=== PATIENT | male | born 1970 | race Two or more races ===

== ENCOUNTER 2018-06-26 09:21 | Inpatient (IN) | payer MEDICARE, OTHER ==
[~2018-06-26] VITALS: Ht 165.1 cm; Wt 59.0 kg
[2018-06-26] VITALS (9 sets, daily range): BP systolic 133–233; BP diastolic 75–122
[2018-06-26] MEDS ORDERED: AMLODIPINE BESYL5 MG ORAL (09:31)
[2018-06-26] MEDS ORDERED: CARBAMAZEPINE200 M4 ORAL (09:31)
[2018-06-26] MEDS ORDERED: ATORVASTATIN CA40 MG ORAL (09:31)
[2018-06-26] MEDS ORDERED: CITALOPRAM HBR20 M1 ORAL (09:31)
[2018-06-26] MEDS ORDERED: TRAMADOL HCL100 M2 ORAL (09:31)
[2018-06-26] MEDS ORDERED: TYLENOL EXTRA500 MG ORAL (09:31)
[2018-06-26] MEDS ORDERED: ASPIRIN81 MG ORAL (09:31)
[2018-06-26] MEDS ORDERED: HUMALOG100 UNIT/4 SUBQ (09:31)
[2018-06-26] MEDS ORDERED: OMEPRAZOLE40 M1 ORAL (09:31)
[2018-06-26] MEDS ORDERED: DOCUSATE SODIU100 M2 ORAL (09:31)
[2018-06-26] MEDS ORDERED: CLONIDINE HCL0.1 M1 PO (09:31)
--- NOTE | 2018-06-26 09:41 | NUR ---
ED Nurse Note: Patient brought in to ER by ambulance by [facility] due to headache and high blood pressure. bp 233/122mmHg and ERMD notified. pt Macedonian speaker, namita x3-4, skin clean and intact and pt has dialysis catheter on Rt upper chest. per pt, he gets dialysis every ,, and last one was yesterday which was Sunday. pt c/o headache 01/02.
[2018-06-26] MEDS ORDERED: cloNIDine 0.2mg Tab ORAL ONE (09:45)
[2018-06-26 10:05] LABS: HEMATOCRIT 38.1 % (42.0-52.0); HEMOGLOBIN 13.1 G/DL (14.2-18.0); MEAN CORPUSCULAR VOLUME 89 FL (80-99); PLATELET COUNT 318 K/UL (150-450); RED BLOOD COUNT 4.28 M/UL (4.70-6.10); RED CELL DISTRIBUTION WIDTH 13.8 % (11.6-14.8); WHITE BLOOD COUNT 11.6 K/UL (4.8-10.8)
[2018-06-26 10:16] LABS: ANION GAP 14 mmol/L (5-15); BLOOD UREA NITROGEN 36 mg/dL (7-18); CALCIUM 9.2 MG/DL (8.5-10.1); CARBON DIOXIDE 28 MMOL/L (21-32); CHLORIDE 95 MMOL/L (98-107); CREATININE 6.6 MG/DL (0.55-1.30); POTASSIUM 4.3 MMOL/L (3.5-5.1); SODIUM 137 MMOL/L (136-145)
--- NOTE | 2018-06-26 10:16 | Diagnostic Imaging Report ---
Indication: Cough Technique: One view of the chest Comparison: none Findings: Lungs and pleural spaces are clear. Heart size is normal. There is a right jugular tunneled dialysis catheter in position Impression: No acute process
[2018-06-26 10:31] LABS: ALANINE AMINOTRANSFERASE 19 U/L (12-78); ALBUMIN 4.2 G/DL (3.4-5.0); ALKALINE PHOSPHATASE 117 U/L (46-116); ASPARTATE AMINO TRANSFERASE 16 U/L (15-37); BILIRUBIN,TOTAL 0.4 MG/DL (0.2-1.0); CKMB 3.5 NG/ML (0.0-3.6); CREATINE KINASE 92 U/L (26-308)
--- NOTE | 2018-06-26 11:09 | Diagnostic Imaging Report ---
Indications: Headache Technique: Spiral acquisitions obtained through the brain. Angled axial and coronal 5 x 5 mm slices were reconstructed. Total dose length product 1365.53 mGycm. CTDI vol(s) 70.38 mGy. Dose reduction achieved using automated exposure control Comparison: None. Findings: There is a large area of encephalomalacia involving the right temporal, parietal, posterior frontal, and occipital lobes. There is also contiguous cystic encephalomalacia involving the right basal ganglia. Old lacunar infarct is seen involving the right caudate head. Contiguous with possibly separate focus of encephalomalacia is also seen in the high posterior right parietal lobe. There is resultant ex vacuo dilatation of the body and frontal horn of the right lateral ventricle. Questionable old lacunar infarct versus artifact in the right side of the midbrain. No acute intracranial hemorrhage nor edema. No mass effect nor midline shift. Otherwise normal marino-white differentiation. The calvarium is intact. Visualized orbits and sinuses are unremarkable. 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 The CT scanner at [facility] is accredited by the [employer] and the scans are performed using protocols designed to limit radiation exposure to as low as reasonably achievable to attain images of sufficient resolution adequate for diagnostic evaluation.
--- NOTE | 2018-06-26 11:20 | NUR ---
ED Nurse Note: Dr. Lama informed of patient's blood pressure, received verbal orders for hydralazine 10mg
--- NOTE | 2018-06-26 12:30 | NUR ---
ED Nurse Note: Systolic is going down to under 200. ERMD notified. pt is stable to be transferred.
--- NOTE | 2018-06-26 12:40 | NUR ---
ED Nurse Note: Report given to VIKAS Sow
--- NOTE | 2018-06-26 13:00 | NUR ---
ED Nurse Note: Pt left department with 1 RN and 1 voip technician in stable condition.
[2018-06-26] MEDS ORDERED: Miralax 17gm pkt ORAL PRN (13:15)
[2018-06-26] MEDS ORDERED: dilTIAZem HCl 25mg/5ml Inj IV PRN (13:15)
[2018-06-26] MEDS ORDERED: Nitroglycerin Subl 0.4mg tab SL PRN (13:15)
[2018-06-26] MEDS ORDERED: Enalaprilat 2.5mg/2ml Inj IV PRN (13:15)
[2018-06-26] MEDS ORDERED: Labetalol 5mg/ml 20ml vial IV PRN (13:15)
[2018-06-26] MEDS ORDERED: Albuterol/Ipratropium 3ml neb HHN PRN (13:15)
--- NOTE | 2018-06-26 13:15 | NUR ---
NURSE NOTES: Received report from VIKAS Thomas. Pt is alert and oriented X3. Pt is complaining of severe head and left arm pain. Heart monitor was applied to patient. Belongings list is in chart. Bed is in lowest position, side rails up X2, and call light is within reach. Will continue to monitor.
--- NOTE | 2018-06-26 13:17 | History and Physical ---
History of Present Illness General Date patient seen: Jun 27, 2018 Reason for Hospitalization: Hypertension Present Illness HPI 48 year old male with hx of DM, HTN, renal disease, dialysis, Hyperlipidemia presented to emergency department complaining of acute onset of headache and elevated blood pressure. Patient is a poor historian. He appeared to be confused. Patient currently stays at a assisted living. Symptoms are noted to be severe. His BP was 220/120 and he is admitted to telemetry for hypertensive emergency. Allergies: Coded Allergies: No Known Allergies (Unverified , 06/26/18) Medication History Scheduled Amlodipine Besylate* (Amlodipine Besylate*), 5 MG ORAL DAILY, (Reported) Aspirin* (Aspirin*), 81 MG ORAL DAILY, (Reported) Atorvastatin Calcium* (Atorvastatin Calcium*), 40 MG ORAL BEDTIME, (Reported) Carbamazepine (Carbamazepine), 200 MG ORAL ONCE, (Reported) Citalopram Hydrobromide* (Citalopram Hbr*), 20 MG ORAL DAILY, (Reported) Docusate Sodium (Docusate Sodium), 100 MG ORAL DAILY, (Reported) Omeprazole (Omeprazole), 40 MG ORAL DAILY, (Reported) Tramadol Hcl (Tramadol Hcl), 50 MG ORAL DAILY, (Reported) Scheduled PRN Acetaminophen* (Tylenol Extra Strength*), 500 MG ORAL Q6H PRN for Mild Pain/ Temp > 100.5, (Reported) Miscellaneous Medications Clonidine HCl (Clonidine HCl ER), 0.1 MG PO, (Reported) Insulin Lispro (Humalog), 0 SUBQ, (Reported) Patient History Healthcare decision maker N Resuscitation status Advanced Directive on File Past Medical/Surgical History Past Medical/Surgical History: (1) Diabetes mellitus (2) Psychosis (3) ESRF (end stage renal failure) Review of Systems All Other Systems: negative except mentioned in HPI Physical Exam General Appearance: cachetic Lines, tubes and drains: peripheral HEENT: normocephalic, atraumatic Neck: non-tender, normal alignment Respiratory/Chest: chest wall non-tender, lungs clear Breasts: no masses Cardiovascular/Chest: normal rate, no JVD Abdomen: normal bowel sounds, non tender Extremities: normal range of motion, non-pitting Skin Exam: cyanotic Neurologic: election watcher II-XII grossly normal Last 24 Hour Vital Signs Date Time Temp Pulse Resp B/P (MAP) Pulse Ox O2 Delivery O2 Flow Rate FiO2 06/26/18 12:26 178/91 06/26/18 12:22 199/100 06/26/18 12:00 199/100 06/26/18 11:45 213/114 06/26/18 11:21 226/120 06/26/18 11:20 86 14 206/100 100 Room Air 06/26/18 10:30 97.2 95 17 222/122 99 Room Air 06/26/18 09:48 233/122 06/26/18 09:41 98.2 95 14 233/122 100 Room Air 06/26/18 09:41 95 14 Room Air 06/26/18 09:16 98.1 90 19 224/120 98 Room Air Laboratory Tests Test 06/26/18 10:00 White Blood Count 11.6 K/UL (4.8-10.8) H Red Blood Count 4.28 M/UL (4.70-6.10) L Hemoglobin 13.1 G/DL (14.2-18.0) L Hematocrit 38.1 % (42.0-52.0) L Mean Corpuscular Volume 89 FL (80-99) Mean Corpuscular Hemoglobin 30.6 PG (27.0-31.0) Mean Corpuscular Hemoglobin Concent 34.4 G/DL (32.0-36.0) Red Cell Distribution Width 13.8 % (11.6-14.8) Platelet Count 318 K/UL (150-450) Mean Platelet Volume 7.8 FL (6.5-10.1) Neutrophils (%) (Auto) % (45.0-75.0) Lymphocytes (%) (Auto) % (20.0-45.0) Monocytes (%) (Auto) % (1.0-10.0) Eosinophils (%) (Auto) % (0.0-3.0) Basophils (%) (Auto) % (0.0-2.0) Differential Total Cells Counted 100 Neutrophils % (Manual) 92 % (45-75) H Lymphocytes % (Manual) 6 % (20-45) L Monocytes % (Manual) 2 % (1-10) Eosinophils % (Manual) 0 % (0-3) Basophils % (Manual) 0 % (0-2) Band Neutrophils 0 % (0-8) Platelet Estimate Adequate Platelet Morphology Normal Red Blood Cell Morphology Normal Sodium Level 137 MMOL/L (136-145) Potassium Level 4.3 MMOL/L (3.5-5.1) Chloride Level 95 MMOL/L (98-107) L Carbon Dioxide Level 28 MMOL/L (21-32) Anion Gap 14 mmol/L (5-15) Blood Urea Nitrogen 36 mg/dL (7-18) H Creatinine 6.6 MG/DL (0.55-1.30) H Estimat Glomerular Filtration Rate 9.0 mL/min (>60) Glucose Level 193 MG/DL (74-106) H Calcium Level 9.2 MG/DL (8.5-10.1) Total Bilirubin 0.4 MG/DL (0.2-1.0) Aspartate Amino Transf (AST/SGOT) 16 U/L (15-37) Alanine Aminotransferase (ALT/SGPT) 19 U/L (12-78) Alkaline Phosphatase 117 U/L (46-116) H Total Creatine Kinase 92 U/L (26-308) Creatine Kinase MB 3.5 NG/ML (0.0-3.6) Creatine Kinase MB Relative Index 3.8 Troponin I 0.013 ng/mL (0.000-0.056) Pro-B-Type Natriuretic Peptide > 93069 pg/mL (0-125) H Total Protein 8.3 G/DL (6.4-8.2) H Albumin 4.2 G/DL (3.4-5.0) Globulin 4.1 g/dL Albumin/Globulin Ratio 1.0 (1.0-2.7) Lipase 157 U/L (73-393) Microbiology Date/Time Source Procedure Growth Status 06/26/18 12:30 Rectum Received Height (Feet): 5 Height (Inches): 5.00 Weight (Pounds): 155 Assessment/Plan Problem List: (1) Hypertensive emergency ICD Codes: I16.1 - Hypertensive emergency SNOMED: 545896931191649 (2) Hypertensive encephalopathy ICD Codes: I67.4 - Hypertensive encephalopathy SNOMED: 32810983 (3) ESRF (end stage renal failure) ICD Codes: N18.6 - End stage renal disease SNOMED: 04579020 (4) Psychosis ICD Codes: F29 - Unspecified psychosis not due to a substance or known physiological condition SNOMED: 67474606 (5) Diabetes mellitus ICD Codes: E11.9 - Type 2 diabetes mellitus without complications SNOMED: 32081045 Assessment/Plan telemetry monitoring dialysis by nephrology monitor and treat BP sliding scale diabetic diet symptomatic treatment check electrolytes Rodolfo Campbell MD Jun 26, 2018 13:17
--- NOTE | 2018-06-26 14:20 | Emergency Room Report ---
History of Present Illness General Chief Complaint: Hypertension Source: Medical Record, EMS Present Illness HPI Patient has history renal failure is currently on dialysis. Patient also presented emergency department today complaining of acute onset of headache and elevated blood pressure. Patient is a poor historian. He appeared be confused was brought here further evaluation. Patient currently stays at a assisted living. Symptoms are noted to be severe.No other modifying factors. No other associated signs and symptoms. No other complaints were noted. Allergies: Coded Allergies: No Known Allergies (Unverified , 06/26/18) Patient History Past Medical History: DM, HTN, renal disease, dialysis, other - Hyperlipidemia Past Surgical History: unable to obtain Social History Narrative stays at assisted-living Reviewed Nursing Documentation: PMH: Agreed; PSxH: Agreed Nursing Documentation-PMH Past Medical History: No History, Except For Hx Hypertension: Yes - HYPERLIPIDEMIA Hx Diabetes: Yes - TYPE 2 Hx Cancer: No Hx Neurological Problems: Yes Hx Cerebrovascular Accident: Yes - date unk Hx Weakness: Yes Review of Systems All Other Systems: negative except mentioned in HPI Physical Exam Vital Signs Date Time Temp Pulse Resp B/P (MAP) Pulse Ox O2 Delivery O2 Flow Rate FiO2 06/26/18 09:16 98.1 90 19 224/120 98 Room Air Sp02 EP Interpretation: reviewed, normal General Appearance: normal inspection, lethargic, Chronically Ill Head: atraumatic Eyes: bilateral eye normal inspection ENT: normal ENT inspection, hearing grossly normal, normal voice Neck: normal inspection, full range of motion, supple, no bony tend Respiratory: normal inspection, lungs clear, normal breath sounds, no respiratory distress, no retraction, no wheezing Cardiovascular #1: regular rate, rhythm, no edema Gastrointestinal: normal inspection, normal bowel sounds, non tender, soft, no guarding, no hernia Genitourinary: no CVA tenderness Musculoskeletal: normal inspection, back normal, normal range of motion Neurologic: responsive, speech normal, grossly normal Psychiatric: depressed affect Skin: normal inspection, normal color, no rash Procedures Critical Care Time Critical Care Time Patient had a critical medical condition which untreated could potentially result in life or limb threatening injury. Total critical care time excluding procedures was approximately 45 minutes. Medical Decision Making Diagnostic Impression: Primary Impression: Hypertensive emergency Additional Impression: Altered mental status ER Course Patient presents emergency department today with altered mental status elevated blood pressure. Differential considerations include hypertensive emergency, hypertensive urgency, electrolyte abnormality just name a few.Given the severity of the patient's presentation I felt this is a highly complex patient. This patient required extensive workup. Patient laboratory workup was not impressive. Patient's head CT however show prior stroke. Patient required clonidine multiple doses of hydralazine to control the blood pressure. After obtaining good control blood pressure patient still appear slightly confused. I felt the patient require admission for further treatment and management. Case was discussed with Dr. Campbell for admission. Labs Test 06/26/18 10:00 White Blood Count 11.6 K/UL (4.8-10.8) Red Blood Count 4.28 M/UL (4.70-6.10) Hemoglobin 13.1 G/DL (14.2-18.0) Hematocrit 38.1 % (42.0-52.0) Mean Corpuscular Volume 89 FL (80-99) Mean Corpuscular Hemoglobin 30.6 PG (27.0-31.0) Mean Corpuscular Hemoglobin Concent 34.4 G/DL (32.0-36.0) Red Cell Distribution Width 13.8 % (11.6-14.8) Platelet Count 318 K/UL (150-450) Mean Platelet Volume 7.8 FL (6.5-10.1) Neutrophils (%) (Auto) % (45.0-75.0) Lymphocytes (%) (Auto) % (20.0-45.0) Monocytes (%) (Auto) % (1.0-10.0) Eosinophils (%) (Auto) % (0.0-3.0) Basophils (%) (Auto) % (0.0-2.0) Differential Total Cells Counted 100 Neutrophils % (Manual) 92 % (45-75) Lymphocytes % (Manual) 6 % (20-45) Monocytes % (Manual) 2 % (1-10) Eosinophils % (Manual) 0 % (0-3) Basophils % (Manual) 0 % (0-2) Band Neutrophils 0 % (0-8) Platelet Estimate Adequate Platelet Morphology Normal Red Blood Cell Morphology Normal Sodium Level 137 MMOL/L (136-145) Potassium Level 4.3 MMOL/L (3.5-5.1) Chloride Level 95 MMOL/L (98-107) Carbon Dioxide Level 28 MMOL/L (21-32) Anion Gap 14 mmol/L (5-15) Blood Urea Nitrogen 36 mg/dL (7-18) Creatinine 6.6 MG/DL (0.55-1.30) Estimat Glomerular Filtration Rate 9.0 mL/min (>60) Glucose Level 193 MG/DL (74-106) Calcium Level 9.2 MG/DL (8.5-10.1) Total Bilirubin 0.4 MG/DL (0.2-1.0) Aspartate Amino Transf (AST/SGOT) 16 U/L (15-37) Alanine Aminotransferase (ALT/SGPT) 19 U/L (12-78) Alkaline Phosphatase 117 U/L (46-116) Total Creatine Kinase 92 U/L (26-308) Creatine Kinase MB 3.5 NG/ML (0.0-3.6) Creatine Kinase MB Relative Index 3.8 Troponin I 0.013 ng/mL (0.000-0.056) Pro-B-Type Natriuretic Peptide > 37757 pg/mL (0-125) Total Protein 8.3 G/DL (6.4-8.2) Albumin 4.2 G/DL (3.4-5.0) Globulin 4.1 g/dL Albumin/Globulin Ratio 1.0 (1.0-2.7) Lipase 157 U/L (73-393) EKG Diagnostic Results Rate: normal Rhythm: NSR ST Segments: no acute changes Rhythm Strip Diag. Results EP Interpretation: yes Rate: 90s Rhythm: NSR, no PVC's, no ectopy Chest X-Ray Diagnostic Results Chest X-Ray Diagnostic Results : Chest X-Ray Ordered: Yes Indication: Chest Pain EP Interpretation: No Interpretation: no consolidation, no effusion, no pneumothorax Impression: No acute disease Last Vital Signs Date Time Temp Pulse Resp B/P (MAP) Pulse Ox O2 Delivery O2 Flow Rate FiO2 06/26/18 13:42 Room Air 06/26/18 13:15 98.5 117 24 178/111 (133) 98 Status: improved Disposition: ADMITTED INPATIENT Condition: Serious Referrals: NON PHYSICIAN (PCP) Rich Lama MD Jun 26, 2018 14:20
[2018-06-26] MEDS: NovoLOG Insulin Flexpen SUBQ SCH ×2 (16:30→20:38)
--- NOTE | 2018-06-26 17:08 | NUR ---
NURSE NOTES: Patient denied his insulin. He states that 170 is normal for him and he only uses insulin when his blood sugar is above 200. Explained the sliding scale to the patient. He verbalized understanding but still refuses to get his insulin coverage.
--- NOTE | 2018-06-26 19:37 | NUR ---
HAND-OFF: Report given to Dottie Waters RN. [facility] endorsed
--- NOTE | 2018-06-26 19:54 | NUR ---
NURSE NOTES: patient received. patient in no acute distress at this time. Patient complains of no pain at this time. patient awake alert and oriented x3-4. patient IV intact and asymptomatic. patient bed in lowest position and locked. bed alarm on. call light within reach. will continue to monitor.
--- NOTE | 2018-06-26 20:27 | Cardiology Progress Note ---
Assessment/Plan Assessment/Plan [id number] Objective Last 24 Hour Vital Signs Date Time Temp Pulse Resp B/P (MAP) Pulse Ox O2 Delivery O2 Flow Rate FiO2 06/26/18 16:00 90 06/26/18 16:00 99.2 93 20 143/91 (108) 97 06/26/18 13:42 Room Air 06/26/18 13:15 98.5 117 24 178/111 (133) 98 06/26/18 13:00 98.3 98 17 177/89 98 Room Air 06/26/18 12:26 178/91 06/26/18 12:22 199/100 06/26/18 12:00 199/100 06/26/18 11:45 213/114 06/26/18 11:21 226/120 06/26/18 11:20 86 14 206/100 100 Room Air 06/26/18 10:30 97.2 95 17 222/122 99 Room Air 06/26/18 09:48 233/122 06/26/18 09:41 98.2 95 14 233/122 100 Room Air 06/26/18 09:41 95 14 Room Air 06/26/18 09:16 98.1 90 19 224/120 98 Room Air Laboratory Tests Test 06/26/18 10:00 06/26/18 17:15 White Blood Count 11.6 K/UL (4.8-10.8) H Red Blood Count 4.28 M/UL (4.70-6.10) L Hemoglobin 13.1 G/DL (14.2-18.0) L Hematocrit 38.1 % (42.0-52.0) L Mean Corpuscular Volume 89 FL (80-99) Mean Corpuscular Hemoglobin 30.6 PG (27.0-31.0) Mean Corpuscular Hemoglobin Concent 34.4 G/DL (32.0-36.0) Red Cell Distribution Width 13.8 % (11.6-14.8) Platelet Count 318 K/UL (150-450) Mean Platelet Volume 7.8 FL (6.5-10.1) Neutrophils (%) (Auto) % (45.0-75.0) Lymphocytes (%) (Auto) % (20.0-45.0) Monocytes (%) (Auto) % (1.0-10.0) Eosinophils (%) (Auto) % (0.0-3.0) Basophils (%) (Auto) % (0.0-2.0) Differential Total Cells Counted 100 Neutrophils % (Manual) 92 % (45-75) H Lymphocytes % (Manual) 6 % (20-45) L Monocytes % (Manual) 2 % (1-10) Eosinophils % (Manual) 0 % (0-3) Basophils % (Manual) 0 % (0-2) Band Neutrophils 0 % (0-8) Platelet Estimate Adequate Platelet Morphology Normal Red Blood Cell Morphology Normal Sodium Level 137 MMOL/L (136-145) Potassium Level 4.3 MMOL/L (3.5-5.1) Chloride Level 95 MMOL/L (98-107) L Carbon Dioxide Level 28 MMOL/L (21-32) Anion Gap 14 mmol/L (5-15) Blood Urea Nitrogen 36 mg/dL (7-18) H Creatinine 6.6 MG/DL (0.55-1.30) H Estimat Glomerular Filtration Rate 9.0 mL/min (>60) Glucose Level 193 MG/DL (74-106) H Calcium Level 9.2 MG/DL (8.5-10.1) Total Bilirubin 0.4 MG/DL (0.2-1.0) Aspartate Amino Transf (AST/SGOT) 16 U/L (15-37) Alanine Aminotransferase (ALT/SGPT) 19 U/L (12-78) Alkaline Phosphatase 117 U/L (46-116) H Total Creatine Kinase 92 U/L (26-308) Creatine Kinase MB 3.5 NG/ML (0.0-3.6) Creatine Kinase MB Relative Index 3.8 Troponin I 0.013 ng/mL (0.000-0.056) 0.017 ng/mL (0.000-0.056) Pro-B-Type Natriuretic Peptide > 12314 pg/mL (0-125) H Total Protein 8.3 G/DL (6.4-8.2) H Albumin 4.2 G/DL (3.4-5.0) Globulin 4.1 g/dL Albumin/Globulin Ratio 1.0 (1.0-2.7) Lipase 157 U/L (73-393) Microbiology Date/Time Source Procedure Growth Status 06/26/18 12:30 Rectum Received Thad Carnes MD Jun 26, 2018 20:27
[2018-06-26] MEDS: Atorvastatin 20mg tab ORAL SCH (20:36)
[2018-06-26] MEDS: Heparin 5000 units/ml inj SUBQ SCH (20:38)
[2018-06-27] VITALS (8 sets, daily range): BP systolic 124–210; BP diastolic 70–116
--- NOTE | 2018-06-27 05:15 | Consultation ---
DATE OF CONSULTATION: 06/26/2018 CARDIOLOGY CONSULTATION CONSULTING PHYSICIAN: Thad Carnes M.D. REFERRING PHYSICIAN: Rodolfo Campbell M.D. REASON FOR EVALUATION: Management of hypertension. HISTORY OF PRESENT ILLNESS: This is a middle-aged gentleman, who is a very poor historian. Information is obtained from review of the patient's chart. Seemed that he came into the hospital because of headaches and left arm pain, but really he is not able to answer questions appropriately. He does not seem to have any chest pains. He states he is not walking, he is bedbound most of the time, and he does not have any palpitations or shortness of breath or chest pains. PAST MEDICAL HISTORY: According to the chart is positive for history of generalized weakness, gait disorder, anemia of chronic disease, chronic renal insufficiency on hemodialysis, coronary artery disease without angina and cerebral infarction, history of diabetes mellitus, hemiplegia, hemiparesis, hypothyroidism, hyperparathyroidism, hyperlipidemia, depression, systemic hypertension, gastroesophageal reflux disease, recurrent nausea and vomiting, and history of convulsions. ALLERGIES: He is not known to be allergic to any medications. MEDICATIONS: He is on aspirin 81 mg, Lipitor 40 mg, Tegretol 200 mg once a day, citalopram 20 mg a day, clonidine p.r.n., Colace, Humalog insulin, magnesium hydroxide solution, Protonix, Zofran, Patricia-Crystal, sevelamer, tramadol, and Tylenol as listed. REVIEW OF SYSTEMS: GASTROINTESTINAL: Positive for apparently nausea and vomiting. He denies any diarrhea. GENITOURINARY: He is on dialysis. PULMONARY: Denies any coughing or wheezing. CONSTITUTIONAL: No fevers, chills, or night sweats. PHYSICAL EXAMINATION: GENERAL: Shows a young gentleman, in no respiratory distress. VITAL SIGNS: Blood pressure is anywhere between 143/91, most recently to 199/100. NECK: Supple. No jugular venous distention. LUNGS: Appear to be clear to auscultation and percussion. CARDIAC: S1 is normal. S2 is normal. Regular rate and rhythm. No heaves, thrills, or gallops noted. ABDOMEN: Soft and nontender. Positive bowel sounds. EXTREMITIES: There is no clubbing, cyanosis, or edema. NEUROLOGICAL: He is awake, alert, and responsive. LABORATORY AND DIAGNOSTIC DATA: Laboratory values on telemetry shows sinus rhythm and sinus tachycardia. EKG, normal sinus rhythm, normal QRS axis, no ST or T-wave abnormalities noted. Labs, blood tests show white count 11.6, hemoglobin 13.1, and platelet count of 318,000. Sodium is 137, potassium 4.3, chloride 95, bicarb 28, BUN 36, creatinine 6.6, glucose of 193, calcium is 9.2, alkaline phosphatase is 117, and proBNP of greater than 35,000. Total protein is 8.3 with albumin of 4.2 and lipase of 157. X-rays were performed including a CT scan of the head that shows large area of encephalomalacia in the right temporal, parietal, frontal, occipital lobe consistent with old infarction and the chest x-ray has no acute processes. ASSESSMENT AND PLAN: 1. Hypertension. 2. Cephalgia. 3. History of CVA. 4. Diabetes mellitus. 5. History of hypertension. 6. History of hyperlipidemia. 7. History of end-stage renal disease, on hemodialysis. 8. Hyperparathyroidism. 9. Hypothyroidism. 10. Depression. 11. History of convulsions or seizures. This patient was seen in cardiac consultation. The patient does not appear to be on any significant antihypertensive medications. We are starting the patient on some calcium-channel blockers for blood pressure control as needed and may require addition of SALLY inhibitors for blood pressure control as well. He will be followed and two sets of cardiac enzymes are negative. An EKG and echo would be ordered for tomorrow morning. Thad Carnes M.D. DR: ESTRELLA JOB#: [id number] CC:
[2018-06-27] MEDS: NovoLOG Insulin Flexpen SUBQ SCH ×4 (06:30→21:00)
--- NOTE | 2018-06-27 07:03 | NUR ---
HAND-OFF: Report given to mayur meadows
--- NOTE | 2018-06-27 07:05 | NUR ---
CASE MANAGEMENT:REVIEW 48 YR OLD BIBA FROM [facility] CC: ELEVATED BLOOD PRESSURE AND HEADACHE PMH: DIALYSIS SI: HTN EMERGENCY. AMS 98.0 90 19 224/120 98% ON RA WBC+11.6 BUN+36 CR+6.6 TROPONIN(-) IS: IV HYDRALAZINE X2 CLONIDINE PO CT HEAD CXR : TO TELEMETRY PLAN: NEURO CHECKS Q4HRS INTERQUAL CRITERIA MET
--- NOTE | 2018-06-27 07:42 | NUR ---
NURSE NOTES: Received report from Jt Shine RN. pt is confused and states that he wants to leave because he has an appt. He states he wants a sleeping pills because he is bored. Bed is in lowest position, side rails up x2, and call light is within reach. Will continue to monitor.
[2018-06-27 07:44] LABS: BASOPHILS % (AUTO) 1.6 % (0.0-2.0); EOSINOPHILS % (AUTO) 1.1 % (0.0-3.0); HEMATOCRIT 36.5 % (42.0-52.0); HEMOGLOBIN 11.9 G/DL (14.2-18.0); LYMPHOCYTES % (AUTO) 22.3 % (20.0-45.0); MEAN CORPUSCULAR VOLUME 92 FL (80-99); MONOCYTES % (AUTO) 10.4 % (1.0-10.0); NEUTROPHILS % (AUTO) 64.7 % (45.0-75.0); PLATELET COUNT 320 K/UL (150-450); RED BLOOD COUNT 3.95 M/UL (4.70-6.10); RED CELL DISTRIBUTION WIDTH 14.6 % (11.6-14.8); WHITE BLOOD COUNT 9.8 K/UL (4.8-10.8)
[2018-06-27 08:23] LABS: CHOLESTEROL 121 MG/DL (< 200); HDL CHOLESTEROL 51 MG/DL (40-60); TRIGLYCERIDES 136 MG/DL (30-150)
--- NOTE | 2018-06-27 08:30 | NUR ---
NURSE NOTES: Patient is refusing to wear monitor. Explained the importance of the monitor. He states " I don't like it, send me back. I want to go back". Monitor returned to MT
[2018-06-27] MEDS: Aspirin Baby 81mg ORAL SCH (08:31)
[2018-06-27] MEDS: Heparin 5000 units/ml inj SUBQ SCH ×2 (08:32→23:56)
--- NOTE | 2018-06-27 09:59 | Consultation ---
Consult Note Consult Note asked to eval for dialysis management poor historian anxious due for HD today Patient has history renal failure is currently on dialysis. Patient also presented emergency department today complaining of acute onset of headache and elevated blood pressure. Patient is a poor historian. He appeared be confused was brought here further evaluation. Patient currently stays at a assisted living. Symptoms are noted to be severe.No other modifying factors. No other associated signs and symptoms. No other complaints were noted. No Known Allergies (Unverified , 06/26/18) Past Medical History: DM, HTN, renal disease, dialysis, other - Hyperlipidemia Past Surgical History: unable to obtain Social History Narrative stays at assisted-living Reviewed Nursing Documentation: PMH: Agreed; PSxH: Agreed Past Medical History: No History, Except For Hx Hypertension: Yes - HYPERLIPIDEMIA Hx Diabetes: Yes - TYPE 2 Hx Neurological Problems: Yes Hx Cerebrovascular Accident: Yes - date unk Hx Weakness: Yes interviewed examined data reviewed Assessment/Plan 1. Hypertension. OOC 2. Cephalgia. 3. History of CVA. 4. Diabetes mellitus. 5. History of hypertension. 6. History of hyperlipidemia. 7. History of end-stage renal disease, on hemodialysis. on HD past few months vis right chest permacath 8. Hyperparathyroidism. 9. Hypothyroidism. 10. Depression. 11. History of convulsions or seizures. Adjust BP meds HD today Monitor labs per orders Bhaskar Krishna MD Jun 27, 2018 09:59
[2018-06-27] MEDS ORDERED: LORazepam 1mg tab ORAL SCH (10:00)
[2018-06-27] MEDS ORDERED: Metoprolol Tartrate 12.5mg TAB ORAL SCH (10:00)
--- NOTE | 2018-06-27 10:05 | NUR ---
NURSE NOTES: Informed the patient about EKG. He states he does not need it and does not want it. Will continue to monitor.
[2018-06-27] MEDS: Citalopram Hydrobromide 10mg Tab ORAL SCH (10:15)
[2018-06-27] MEDS: carBAMazepine 200mg tab ORAL SCH (10:15)
[2018-06-27 10:23] LABS: CREATINE KINASE 81 U/L (26-308); GAMMA GLUTAMYL TRANSPEPTIDASE 41 U/L (5-85); PHOSPHORUS 5.4 MG/DL (2.5-4.9)
[2018-06-27] MEDS ORDERED: Enalaprilat 2.5mg/2ml Inj IV PRN (12:00)
--- NOTE | 2018-06-27 12:10 | Pulmonology Progress Note ---
Assessment/Plan Problems: (1) Hypertensive emergency (2) Hypertensive encephalopathy (3) ESRF (end stage renal failure) (4) Psychosis (5) Diabetes mellitus Assessment/Plan being dialyzed now BP sightly better add Seroquel telemetry monitoring dialysis by nephrology monitor and treat BP sliding scale diabetic diet symptomatic treatment check electrolytes Subjective ROS Limited/Unobtainable: No Constitutional: Reports: no symptoms HEENT: Repors: no symptoms Allergies: Coded Allergies: No Known Allergies (Unverified , 06/26/18) Objective Last 24 Hour Vital Signs Date Time Temp Pulse Resp B/P (MAP) Pulse Ox O2 Delivery O2 Flow Rate FiO2 06/27/18 10:46 228/117 06/27/18 09:00 Room Air 06/27/18 08:32 205/116 06/27/18 08:31 88 205/116 06/27/18 08:00 98.3 88 20 205/116 (145) 96 06/27/18 04:00 98.3 69 18 124/70 (88) 97 06/27/18 04:00 77 06/27/18 00:00 97.3 84 18 131/80 (97) 96 06/27/18 00:00 80 06/26/18 21:00 Room Air 06/26/18 20:00 80 06/26/18 20:00 99.4 82 18 133/75 (94) 97 06/26/18 16:00 90 06/26/18 16:00 99.2 93 20 143/91 (108) 97 06/26/18 13:42 Room Air 06/26/18 13:15 98.5 117 24 178/111 (133) 98 06/26/18 13:00 98.3 98 17 177/89 98 Room Air 06/26/18 12:26 178/91 06/26/18 12:22 199/100 Intake and Output 06/26/18 06/27/18 19:00 07:00 Intake Total 0 ml 170 ml Balance 0 ml 170 ml Intake Oral 0 ml 50 ml Other 120 ml General Appearance: WD/WN HEENT: normocephalic, atraumatic Respiratory/Chest: chest wall non-tender, lungs clear Cardiovascular: normal peripheral pulses, regular rhythm Abdomen: normal bowel sounds, no organomegaly Genitourinary: normal external genitalia 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 Microbiology Date/Time Source Procedure Growth Status 06/26/18 12:30 Rectum Received Laboratory Tests 06/26/18 17:15: Troponin I 0.017 06/27/18 07:03: Troponin I 0.152H, White Blood Count 9.8, Red Blood Count 3.95L, Hemoglobin 11.9L, Hematocrit 36.5L, Mean Corpuscular Volume 92, Mean Corpuscular Hemoglobin 30.1, Mean Corpuscular Hemoglobin Concent 32.6, Red Cell Distribution Width 14.6, Platelet Count 320, Mean Platelet Volume 7.5, Neutrophils (%) (Auto) 64.7, Lymphocytes (%) (Auto) 22.3, Monocytes (%) (Auto) 10.4H, Eosinophils (%) (Auto) 1.1, Basophils (%) (Auto) 1.6, Prothrombin Time 10.7, Prothromb Time International Ratio 1.0, Activated Partial Thromboplast Time 31, Hemoglobin A1c 5.7, Uric Acid 6.0, Phosphorus Level 5.4H, Magnesium Level 2.6H, Gamma Glutamyl Transpeptidase 41, Total Creatine Kinase 81, C- Reactive Protein, Quantitative 2.2H, Triglycerides Level 136, Cholesterol Level 121, LDL Cholesterol 55, HDL Cholesterol 51, Cholesterol/HDL Ratio 2.4L, Thyroid Stimulating Hormone (TSH) 1.560 Current Medications Medications (Trade) Dose Ordered Sig/Celia Route PRN Reason Start Time Stop Time Status Last Admin Dose Admin Acetaminophen (Tylenol) 650 mg Q4H PRN ORAL FEVER 06/26/18 13:15 07/26/18 13:14 Albuterol/ Ipratropium (Albuterol/ Ipratropium) 3 ml Q4H PRN HHN Shortness of Breath 06/26/18 13:15 07/01/18 13:14 Amlodipine Besylate (Norvasc) 5 mg DAILY ORAL 06/28/18 09:00 07/27/18 08:59 Aspirin (ASA) 81 mg DAILY ORAL 06/27/18 09:00 07/27/18 08:59 06/27/18 08:31 Atorvastatin Calcium (Lipitor) 40 mg BEDTIME ORAL 06/26/18 21:00 07/26/18 20:59 06/26/18 20:36 Carbamazepine (TEGretol) 200 mg DAILY ORAL 06/27/18 10:15 07/27/18 10:14 Citalopram Hydrobromide (celeXA) 10 mg DAILY ORAL 06/27/18 10:15 07/27/18 10:14 Clonidine HCl (Catapres Tab) 0.1 mg EVERY 8 HOURS ORAL 06/27/18 14:00 07/27/18 13:59 Dextrose (Dextrose 50%) 25 ml Q30M PRN IV Hypoglycemia 06/26/18 15:15 07/26/18 15:14 Dextrose (Dextrose 50%) 50 ml Q30M PRN IV Hypoglycemia 06/26/18 15:15 07/26/18 15:14 Docusate Sodium (Colace) 100 mg TWICE A DAY ORAL 06/27/18 18:00 07/27/18 17:59 Heparin Sodium (Porcine) (Heparin 5000 units/ml) 5,000 units EVERY 12 HOURS SUBQ 06/26/18 21:00 07/26/18 20:59 06/26/18 20:38 Insulin Aspart (NovoLOG) BEFORE MEALS AND HS SUBQ 06/26/18 16:30 07/26/18 16:29 06/26/18 20:38 Lorazepam (Ativan) 1 mg Q6H PRN ORAL For Anxiety 06/27/18 10:15 07/04/18 10:14 Metoprolol Tartrate (Lopressor) 12.5 mg Q12HR ORAL 06/27/18 21:00 07/27/18 20:59 Nitroglycerin (Ntg) 0.4 mg Q5M PRN SL Prn Chest Pain 06/26/18 13:15 07/26/18 13:14 Ondansetron HCl (Zofran) 4 mg Q6H PRN IVP Nausea & Vomiting 06/26/18 13:15 07/26/18 13:14 06/27/18 00:23 Pantoprazole (Protonix) 40 mg BID ORAL 06/27/18 18:00 07/27/18 08:59 Polyethylene Glycol (Miralax) 17 gm DAILYPRN PRN ORAL Constipation 06/26/18 13:15 07/26/18 13:14 Temazepam (Restoril) 15 mg HSPRN PRN ORAL Insomnia 06/26/18 13:15 07/03/18 13:14 Rodolfo Campbell MD Jun 27, 2018 12:10
--- NOTE | 2018-06-27 15:45 | Cardiology Report ---
APPROVED REPORT EXAM: Two-dimensional and M-mode echocardiogram with Doppler and color Doppler. INDICATION Left ventricular function M-Mode DIMENSIONS IVSd0.8 (0.7-1.1cm)Left Atrium (MM)2.9 (1.6-4.0cm) LVDd4.5 (3.5-5.6cm)Aortic Root2.9 (2.0-3.7cm) PWd0.9 (0.7-1.1cm)Aortic Cusp Exc.1.8 (1.5-2.0cm) LVDs2.9 (2.5-4.0cm) PWs2.5 cm Normal left ventricular chamber size, systolic function and wall motion. Left ventricular ejection fraction estimated to be 70 %. Mild left ventricular hypertrophy by 2D. Anterior Echo-free space, may be due to pericardial fat or effusion. All other cardiac chamber sizes are within normal limits. Focal aortic valve sclerosis with adequate cusp excursion. Thickened mitral valve leaflets with normal excursion. Mitral annulus and aortic root calcification. Pulmonic valve not well visualized. Normal tricuspid valve structure. IVC measured at 1.9 cm with slight physiologic collapse. A color flow and spectral Doppler study was performed and revealed: Trace aortic regurgitation.. Trace,mitral regurgitation. Can not determine left ventricular diastolic function by mitral diastolic velocities due to atrial fibrillation. Trace tricuspid regurgitation. Tricuspid systolic velocities suggests peak right ventricular systolic pressure of 15 mmHg Pulmonic regurgitation present.
[2018-06-27] MEDS: Docusate 100mg cap ORAL SCH (17:13)
[2018-06-27] MEDS ORDERED: Minoxidil 2.5mg tab ORAL PRN (19:18)
--- NOTE | 2018-06-27 19:28 | NUR ---
HAND-OFF: Report given to VIKAS Mckeon. Plan of care endorsed
--- NOTE | 2018-06-27 19:30 | NUR ---
NURSE NOTES: Received report from VIKAS Rosenberg. Patient in bed asleep showing no signs of acute distress. Respiration even and non labored on room air. No sob noted. IV line patent and intact. Bed in lowest position. Call light within reach. All needs attended and met. Will continue plan of care.
--- NOTE | 2018-06-27 19:54 | NUR ---
NURSE NOTES: Called and spoke to Dr. Carnes to inform new lab result of Troponin 0.152. No new order given.
--- NOTE | 2018-06-27 23:30 | NUR ---
NURSE NOTES: Patient refused to wear radiographer cardiac catheterization. Explained risk, benefits and purpose to patient. Patient still firmly refused.
[2018-06-27] MEDS: LORazepam 1mg tab ORAL PRN (23:42)
[2018-06-27] MEDS: Atorvastatin 20mg tab ORAL SCH (23:42)
[2018-06-27] MEDS: Metoprolol Tartrate 12.5mg TAB ORAL SCH (23:42)
[2018-06-28] VITALS: BP 190/108
[2018-06-28 04:00] VITALS: BP 178/100
[2018-06-28] MEDS: NovoLOG Insulin Flexpen SUBQ SCH ×2 (06:30→12:26)
[2018-06-28 06:39] LABS: BASOPHILS % (AUTO) 2.2 % (0.0-2.0); EOSINOPHILS % (AUTO) 4.9 % (0.0-3.0); HEMOGLOBIN 12.5 G/DL (14.2-18.0); LYMPHOCYTES % (AUTO) 35.2 % (20.0-45.0); MEAN CORPUSCULAR VOLUME 92 FL (80-99); MONOCYTES % (AUTO) 11.7 % (1.0-10.0); NEUTROPHILS % (AUTO) 46.1 % (45.0-75.0); PLATELET COUNT 322 K/UL (150-450); RED BLOOD COUNT 4.12 M/UL (4.70-6.10); RED CELL DISTRIBUTION WIDTH 14.7 % (11.6-14.8); WHITE BLOOD COUNT 7.7 K/UL (4.8-10.8)
[2018-06-28] MEDS: LORazepam 1mg tab ORAL PRN ×2 (06:45→14:27)
--- NOTE | 2018-06-28 07:04 | NUR ---
HAND-OFF: Report given to Sukh Draper RN.
--- NOTE | 2018-06-28 07:05 | NUR ---
NURSE NOTES: Received report from Addendum: 06/28/18 at 0709 by Bonny Joyner RN NURSE NOTES: Received report from Mike BEAN. Pt in bed awake. Alert/oriented and urdu speaking and able to make needs known. No signs of distress noted. C/o light headache. Bed in lowest position and locked. IV in LFA with 20G SL patent and intact. Rhythm with SR noted during filenet architect. Will continue to monitor plan of care.
[2018-06-28 07:15] LABS: ALANINE AMINOTRANSFERASE 18 U/L (12-78); ALBUMIN 3.9 G/DL (3.4-5.0); ALKALINE PHOSPHATASE 103 U/L (46-116); ANION GAP 11 mmol/L (5-15); ASPARTATE AMINO TRANSFERASE 15 U/L (15-37); BILIRUBIN,TOTAL 0.4 MG/DL (0.2-1.0); BLOOD UREA NITROGEN 38 mg/dL (7-18); CALCIUM 9.4 MG/DL (8.5-10.1); CARBON DIOXIDE 28 MMOL/L (21-32); CHLORIDE 97 MMOL/L (98-107); CREATININE 7.7 MG/DL (0.55-1.30); FERRITIN 1100 NG/ML (8-388); PHOSPHORUS 5.1 MG/DL (2.5-4.9); POTASSIUM 4.3 MMOL/L (3.5-5.1); SODIUM 136 MMOL/L (136-145)
[2018-06-28 07:32] LABS: % IRON SATURATION 67 % (15-50); IRON 137 ug/dL (50-175); TOTAL IRON BINDING CAPACITY 206 ug/dL (250-450)
--- NOTE | 2018-06-28 07:35 | NUR ---
NURSE NOTES: Pt refuses applying shelter monitor. Explained the importance of cardiac monitoring for pt with elevated troponin. But pt still refused.
--- NOTE | 2018-06-28 07:50 | NUR ---
NURSE NOTES: Received report from Radha @Lab regarding Troponin I level with 0.100. Noted trending down of the result. Will continue to plan of care.
--- NOTE | 2018-06-28 07:50 | NUR ---
Received report from Radha @Lab regarding Troponin I level with 0.100. Noted trending down of the result. Will continue to plan of care.
[2018-06-28 08:00] VITALS: BP 129/81
[2018-06-28] MEDS: Citalopram Hydrobromide 10mg Tab ORAL SCH (08:51)
[2018-06-28] MEDS: Metoprolol Tartrate 12.5mg TAB ORAL SCH (08:51)
[2018-06-28] MEDS: Docusate 100mg cap ORAL SCH (08:51)
[2018-06-28] MEDS: Aspirin Baby 81mg ORAL SCH (08:52)
[2018-06-28] MEDS: carBAMazepine 200mg tab ORAL SCH (08:52)
[2018-06-28] MEDS: Heparin 5000 units/ml inj SUBQ SCH (08:53)
--- NOTE | 2018-06-28 10:12 | Nephrology Progress Note ---
Assessment/Plan Problem List: (1) ESRF (end stage renal failure) Assessment: on HD (2) Hypertensive emergency (3) Psychosis (4) Diabetes mellitus Assessment 1. Hypertension. OOC on admission- improved 2. Cephalgia. Resolved 3. History of CVA. 4. Diabetes mellitus. 5. History of hypertension. Hypertensive kidney ds 6. History of hyperlipidemia. 7. History of end-stage renal disease, on hemodialysis. on HD past few months vis right chest permacath 8. Hyperparathyroidism. 9. Hypothyroidism. 10. Depression. 11. History of convulsions or seizures. Plan Adjust BP meds HD 06/27 next 06/29 Monitor labs per orders Subjective ROS Limited/Unobtainable: No Objective Objective Last 24 Hour Vital Signs Date Time Temp Pulse Resp B/P (MAP) Pulse Ox O2 Delivery O2 Flow Rate FiO2 06/28/18 09:00 Room Air 06/28/18 08:51 82 129/81 06/28/18 08:51 82 129/81 06/28/18 08:00 97.3 82 18 129/81 (97) 99 06/28/18 06:46 178/100 06/28/18 04:00 97.8 69 20 178/100 (126) 97 06/28/18 00:00 98.3 81 20 190/108 (135) 99 06/27/18 23:43 187/110 06/27/18 23:42 96 187/110 06/27/18 21:00 Room Air 06/27/18 20:00 98.0 97 20 187/110 (135) 96 06/27/18 18:35 94 164/100 (121) 06/27/18 17:35 99.2 06/27/18 17:13 170/109 06/27/18 16:00 99.2 89 18 170/109 (129) 96 06/27/18 13:18 167/99 (121) 06/27/18 12:00 97.9 89 18 210/103 (138) 95 06/27/18 10:46 228/117 Intake and Output 06/27/18 06/28/18 18:59 06:59 Intake Total 120 ml 100 ml Output Total 2000 ml Balance -1880 ml 100 ml Intake Oral 120 ml 100 ml Output Hemodialysis UF 2000 ml Laboratory Tests 06/28/18 05:45: White Blood Count 7.7, Red Blood Count 4.12L, Hemoglobin 12.5L, Hematocrit 38.0L , Mean Corpuscular Volume 92, Mean Corpuscular Hemoglobin 30.5, Mean Corpuscular Hemoglobin Concent 33.0, Red Cell Distribution Width 14.7, Platelet Count 322, Mean Platelet Volume 8.4, Neutrophils (%) (Auto) 46.1, Lymphocytes (% ) (Auto) 35.2, Monocytes (%) (Auto) 11.7H, Eosinophils (%) (Auto) 4.9H, Basophils (%) (Auto) 2.2H, Sodium Level 136, Potassium Level 4.3, Chloride Level 97L, Carbon Dioxide Level 28, Anion Gap 11, Blood Urea Nitrogen 38H, Creatinine 7.7H, Estimat Glomerular Filtration Rate 7.5, Glucose Level 79, Calcium Level 9.4, Phosphorus Level 5.1H, Iron Level 137, Total Iron Binding Capacity 206L, Percent Iron Saturation 67H, Unsaturated Iron Binding 69L, Ferritin 1100H, Total Bilirubin 0.4, Aspartate Amino Transf (AST/SGOT) 15, Alanine Aminotransferase (ALT/SGPT) 18, Alkaline Phosphatase 103, Troponin I 0.100H, Total Protein 7.8, Albumin 3.9, Globulin 3.9, Albumin/Globulin Ratio 1.0 , Vitamin B12 Level 939, Folate 9.6 Height (Feet): 5 Height (Inches): 5.00 Weight (Pounds): 130 General Appearance: no apparent distress Cardiovascular: normal rate Respiratory/Chest: decreased breath sounds Abdomen: soft Bhaskar Krishna MD Jun 28, 2018 10:12
--- NOTE | 2018-06-28 11:00 | NUR ---
NURSE NOTES: Called [facility] hemodialysis to confirm the schedule for hemodialysis tomorrow. Spoke to Elroy BEAN and confirmed. [facility] dialysis#[phone]
[2018-06-28 12:00] VITALS: BP 176/100
[2018-06-28] MEDS ORDERED: NORVASC10 MG ORAL (12:35)
[2018-06-28] MEDS ORDERED: MINOXIDIL5 GM MC (12:36)
--- NOTE | 2018-06-28 12:36 | Pulmonology Progress Note ---
Assessment/Plan Problems: (1) Hypertensive emergency (2) Hypertensive encephalopathy (3) ESRF (end stage renal failure) (4) Psychosis (5) Diabetes mellitus Assessment/Plan no new complains refusing electrodes BP sightly better add Seroquel telemetry monitoring dialysis by nephrology monitor and treat BP sliding scale diabetic diet symptomatic treatment check electrolytes Subjective ROS Limited/Unobtainable: No Constitutional: Reports: no symptoms HEENT: Repors: no symptoms Respiratory: Reports: no symptoms Allergies: Coded Allergies: No Known Allergies (Unverified , 06/26/18) Objective Last 24 Hour Vital Signs Date Time Temp Pulse Resp B/P (MAP) Pulse Ox O2 Delivery O2 Flow Rate FiO2 06/28/18 12:26 176/100 06/28/18 12:00 97.8 72 18 176/100 (125) 99 06/28/18 09:00 Room Air 06/28/18 08:51 82 129/81 06/28/18 08:51 82 129/81 06/28/18 08:00 97.3 82 18 129/81 (97) 99 06/28/18 06:46 178/100 06/28/18 04:00 97.8 69 20 178/100 (126) 97 06/28/18 00:00 98.3 81 20 190/108 (135) 99 06/27/18 23:43 187/110 06/27/18 23:42 96 187/110 06/27/18 21:00 Room Air 06/27/18 20:00 98.0 97 20 187/110 (135) 96 06/27/18 18:35 94 164/100 (121) 06/27/18 17:35 99.2 06/27/18 17:13 170/109 06/27/18 16:00 99.2 89 18 170/109 (129) 96 06/27/18 13:18 167/99 (121) Intake and Output 06/27/18 06/28/18 18:59 06:59 Intake Total 120 ml 100 ml Output Total 2000 ml Balance -1880 ml 100 ml Intake Oral 120 ml 100 ml Output Hemodialysis UF 2000 ml Objective Lines, tubes and drains: peripheral HEENT: normocephalic, atraumatic Neck: non-tender, normal alignment Respiratory/Chest: chest wall non-tender, lungs clear Breasts: no masses Cardiovascular/Chest: normal rate, no JVD Abdomen: normal bowel sounds, non tender Extremities: normal range of motion, non-pitting Skin Exam: cyanotic 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 Complete 06/26/18 12:30 Rectum VRE Culture - Final NO VANCOMYCIN RESISTANT ENTEROCOCCUS ... Complete 06/26/18 12:30 Rectum Received Laboratory Tests 06/28/18 05:45: White Blood Count 7.7, Red Blood Count 4.12L, Hemoglobin 12.5L, Hematocrit 38.0L , Mean Corpuscular Volume 92, Mean Corpuscular Hemoglobin 30.5, Mean Corpuscular Hemoglobin Concent 33.0, Red Cell Distribution Width 14.7, Platelet Count 322, Mean Platelet Volume 8.4, Neutrophils (%) (Auto) 46.1, Lymphocytes (% ) (Auto) 35.2, Monocytes (%) (Auto) 11.7H, Eosinophils (%) (Auto) 4.9H, Basophils (%) (Auto) 2.2H, Sodium Level 136, Potassium Level 4.3, Chloride Level 97L, Carbon Dioxide Level 28, Anion Gap 11, Blood Urea Nitrogen 38H, Creatinine 7.7H, Estimat Glomerular Filtration Rate 7.5, Glucose Level 79, Calcium Level 9.4, Phosphorus Level 5.1H, Iron Level 137, Total Iron Binding Capacity 206L, Percent Iron Saturation 67H, Unsaturated Iron Binding 69L, Ferritin 1100H, Total Bilirubin 0.4, Aspartate Amino Transf (AST/SGOT) 15, Alanine Aminotransferase (ALT/SGPT) 18, Alkaline Phosphatase 103, Troponin I 0.100H, Total Protein 7.8, Albumin 3.9, Globulin 3.9, Albumin/Globulin Ratio 1.0 , Vitamin B12 Level 939, Folate 9.6 Current Medications Medications (Trade) Dose Ordered Sig/Celia Route PRN Reason Start Time Stop Time Status Last Admin Dose Admin Acetaminophen (Tylenol) 650 mg Q4H PRN ORAL FEVER 06/26/18 13:15 07/26/18 13:14 06/27/18 16:48 Albuterol/ Ipratropium (Albuterol/ Ipratropium) 3 ml Q4H PRN HHN Shortness of Breath 06/26/18 13:15 07/01/18 13:14 Amlodipine Besylate (Norvasc) 10 mg DAILY ORAL 06/28/18 09:00 07/27/18 08:59 06/28/18 08:51 Aspirin (ASA) 81 mg DAILY ORAL 06/27/18 09:00 07/27/18 08:59 06/28/18 08:52 Atorvastatin Calcium (Lipitor) 40 mg BEDTIME ORAL 06/26/18 21:00 07/26/18 20:59 06/27/18 23:42 Carbamazepine (TEGretol) 200 mg DAILY ORAL 06/27/18 10:15 07/27/18 10:14 06/28/18 08:52 Citalopram Hydrobromide (celeXA) 10 mg DAILY ORAL 06/27/18 10:15 07/27/18 10:14 06/28/18 08:51 Clonidine HCl (Catapres Tab) 0.1 mg EVERY 8 HOURS ORAL 06/27/18 14:00 07/27/18 13:59 06/28/18 06:46 Dextrose (Dextrose 50%) 25 ml Q30M PRN IV Hypoglycemia 06/26/18 15:15 07/26/18 15:14 Dextrose (Dextrose 50%) 50 ml Q30M PRN IV Hypoglycemia 06/26/18 15:15 07/26/18 15:14 Docusate Sodium (Colace) 100 mg TWICE A DAY ORAL 06/27/18 18:00 07/27/18 17:59 06/28/18 08:51 Heparin Sodium (Porcine) (Heparin 5000 units/ml) 5,000 units EVERY 12 HOURS SUBQ 06/26/18 21:00 07/26/18 20:59 06/28/18 08:53 Insulin Aspart (NovoLOG) BEFORE MEALS AND HS SUBQ 06/26/18 16:30 07/26/18 16:29 06/28/18 12:26 Lorazepam (Ativan) 1 mg Q6H PRN ORAL For Anxiety 06/27/18 10:15 07/04/18 10:14 06/28/18 06:45 Metoprolol Tartrate (Lopressor) 12.5 mg Q12HR ORAL 06/27/18 21:00 07/27/18 20:59 06/28/18 08:51 Minoxidil (Loniten) 2.5 mg Q4H PRN ORAL bp 160 and above 06/27/18 19:18 07/27/18 19:17 06/28/18 12:26 Nitroglycerin (Ntg) 0.4 mg Q5M PRN SL Prn Chest Pain 06/26/18 13:15 07/26/18 13:14 Ondansetron HCl (Zofran) 4 mg Q6H PRN IVP Nausea & Vomiting 06/26/18 13:15 07/26/18 13:14 06/27/18 00:23 Pantoprazole (Protonix) 40 mg BID ORAL 06/27/18 18:00 07/27/18 08:59 06/28/18 08:52 Polyethylene Glycol (Miralax) 17 gm DAILYPRN PRN ORAL Constipation 06/26/18 13:15 07/26/18 13:14 Quetiapine Fumarate (SEROquel) 25 mg Q12HR ORAL 06/27/18 12:00 07/27/18 11:59 06/28/18 08:52 Temazepam (Restoril) 15 mg HSPRN PRN ORAL Insomnia 06/26/18 13:15 07/03/18 13:14 Rodolfo Campbell MD Jun 28, 2018 12:36
--- NOTE | 2018-06-28 13:30 | NUR ---
NURSE NOTES: Verbal report given Love VIKAS @[facility].
--- NOTE | 2018-06-28 13:43 | NUR ---
DISCHARGE PLANNED PATIENT WILL RETURN TO [facility] ROOM 18 SKILLED T: [phone] FOR NURSE TO NURSE REPORT [facility] HAS BEEN ARRANGED FOR 1500 POSTMASTER
[2018-06-28 14:25] VITALS: BP 180/96
--- NOTE | 2018-06-28 15:20 | NUR ---
Discharge: Patient is being discharged from medical care via ambulance. Awake, alert and oriented x3. Vital signs are stable. No c/o pain. Gave the report to ambulance personnel. After care instructions, patient signed patient consent and belonging list in the medical record upon discharge. All medical devices such as IV, patient monitor and ID band were removed. Pt transferred to [facility] via [facility] with ambulance personnels.
--- NOTE | 2018-06-28 21:04 | Discharge Summary ---
Discharge Summary Discharge Summary _ DATE OF ADMISSION: 06/26/2018 DATE OF DISCHARGE: 06/28/2018 DISCHARGED BY: Dr. Campbell REASON FOR ADMISSION: 48 years old male with past medical history of diabetes mellitus, hypertension, end-stage renal disease, on hemodialysis, hyperlipidemia, hypothyroidism, history of CVA, hyperparathyroidism, depression, anxiety, presented with acute onset of headache and elevated blood pressure. Patient by himself was a poor historian and unable to provide much of information. Upon evaluation blood pressure was 224/120. Laboratory workup revealed mild leukocytosis WBC 11.6, hemoglobin 13.1, hematocrit 38.1. Stable electrolytes. BUN 36, creatinine 6.6, consistent with known history of end-stage renal disease. Troponin -0.013. EKG revealed normal sinus rhythm no acute ischemic changes. CT of the head revealed large area of encephalomalacia in the right temporal, parietal, frontal, occipital lobes, consistent with old middle cerebral artery distribution infarct. Other old infarcts, including right parietal lobe and right basal ganglia, questionably in the right midbrain. No evidence of acute intracranial bleeding or mass-effect. Patient was admitted for further management CONSULTANTS: contract negotiator Dr. Carnes agriculture specialist Dr. Krishna [facility] HOSPITAL COURSE: Patient admitted to telemetry floor. Cardiology and nephrology closely followed. Hemodialysis was arranged and provided as per agriculture specialist recommendations with close monitoring of volumes and renal parameters. Electrolytes corrected as needed. Echocardiogram revealed preserved ejection fraction of 70% with no evidence of wall motion abnormality. Mild left ventricular hypertrophy. Right ventricular systolic pressure of 15. Apparently patient was not on any antihypertensive medication. Patient started on calcium channel aminah and beta-aminah. Minoxidil was on board as needed for further blood pressure control. Patient may require further addition of SALLY inhibitor as outpatient to keep blood pressure under control. Repeated troponin was negative. Blood sugar was managed with sliding scale of insulin. Hemoglobin A1c at goal. Hemoglobin and hematocrit were closely monitored, remained stable. Lipid panel stable. TSH within normal limits. Synthroid was continued. Stable folate and vitamin B12 levels. Antiplatelet therapy with aspirin continued. DVT and GI prophylaxis provided. Seizure precaution maintained. Tegretol was continued. Bowel regimen instituted. Supportive care provided. Psychiatric medications continued Leukocytosis resolved in the next day, likely reactive. No evidence of infection. Patient clinically stabilized. Blood pressure improved. Patient was stable for discharge to the care home facility for continuation of care. FINAL DIAGNOSES: Hypertensive emergency, present on admission, -improved Hypertensive encephalopathy Cephalgia -resolved History of multiply CVA Diabetes mellitus Hypertensive kidney disease End-stage renal disease, on hemodialysis History of hyperlipidemia Hypothyroidism Hyperparathyroidism Seizure disorder Depression Psychosis DISCHARGE MEDICATIONS: See Medication Reconciliation list. DISCHARGE INSTRUCTIONS: Patient was discharged to care home facility. Follow-up with Medical doctor at the facility I have been assigned to dictate discharge summary for this account. I was not involved in the patient's management. Vanda Ren NP Jun 28, 2018 21:04
== END 2018-06-28 15:20 | DRG 304 ==
LOC: EDBD 09:21 → EMR 09:55 → 2E 10:14 → EDBEDREQ 11:25 → 2E 06-27 08:52
PROC: 5A1D70Z Performance of Urinary Filtration, Intermittent, Less than 6 Hours Per Day (ICD-10-PCS; principal; 2018-06-27)
DX: I16.1 Hypertensive emergency (principal); N18.6 End stage renal disease; I67.4 Hypertensive encephalopathy; E78.5 Hyperlipidemia, unspecified; Z79.82 Long term (current) use of aspirin; Z79.4 Long term (current) use of insulin; I12.0 Hypertensive chronic kidney disease with stage 5 chronic kidney disease or end stage renal disease; E11.22 Type 2 diabetes mellitus with diabetic chronic kidney disease; F29 Unspecified psychosis not due to a substance or known physiological condition; Z99.2 Dependence on renal dialysis; Z86.73 Personal history of transient ischemic attack (TIA), and cerebral infarction without residual deficits; E03.9 Hypothyroidism, unspecified; E21.3 Hyperparathyroidism, unspecified; F32.9 Major depressive disorder, single episode, unspecified; I25.10 Atherosclerotic heart disease of native coronary artery without angina pectoris; K21.9 Gastro-esophageal reflux disease without esophagitis; R56.9 Unspecified convulsions
CPT/HCPCS: 36415; 70450; 71045; 80053; 80061; 82550; 82553; 82607; 82728; 82746; 82962; 82977; 83036; 83540; 83550; 83690; 83735; 83880; 84100; 84443; 84484; 84550; 85007; 85025; 85610; 85730; 86140; 87081; 93005; 93306; 94664; 96374; 99291; J1815; J2405